=== PATIENT | female | born 1990 | race Caucasian/White ===

== ENCOUNTER 2019-09-10 14:08 | Inpatient (IN) | payer MEDICAID ==
[~2019-09-10] VITALS: Ht 170.2 cm; Wt 85.7 kg
[2019-09-10 14:08] VITALS: BP 103/64
[2019-09-10] MEDS ORDERED: IBUPROFEN 400 MG TAB PO ONE (14:50)
[2019-09-10 15:11] LABS: HEMATOCRIT 34.6 % (36-48); HEMOGLOBIN 11.1 g/dL (12.0-16.0); MEAN CORPUSCULAR HEMOGLOBIN 28 pg (27-31); MEAN CORPUSCULAR HGB CONC 32 g/dL (33-37); MEAN CORPUSCULAR VOLUME 85.4 fL (80-94); PLATELET COUNT (AUTO) 367 K/uL (140-450); RED BLOOD CELL COUNT(AUTO) 4.06 MIL/uL (4.20-5.40); RED CELL DISTRIBUTION WIDTH 14.9 % (11.6-13.7); WHITE BLOOD COUNT (AUTO) 20.1 K/uL (4.8-10.8)
[2019-09-10] MEDS ORDERED: IBUPROFEN 400 MG TAB ONE (16:02)
[2019-09-10 16:24] LABS: BASOPHILS % (MANUAL) 0 % (0-2); EOSINOPHILS % (MANUAL) 1 % (0-4); LYMPHOCYTES % (MANUAL) 4 % (20-46); MONOCYTES % (MANUAL) 4 % (5-12)
[2019-09-10] MEDS ORDERED: GENTAMICIN PER PHARMACY MC PRN (16:55)
[2019-09-10 17:40] LABS: ANION GAP 15.6 (8-16); CARBON DIOXIDE 24.5 mmol/L (21-32); CREATININE 0.8 mg/dL (0.6-1.3); POTASSIUM 4.1 mmol/L (3.5-5.1)
[2019-09-10] MEDS: GENTAMICIN 120 MG in DEXTROSE 5% 100 ML IV SCH (18:00)
[2019-09-10] MEDS ORDERED: PROPOFOL 200 MG/20 ML VIAL IV ONE (18:16)
[2019-09-10] MEDS ORDERED: DEXAMETHASONE 4 MG/ML VIAL ONE (18:16)
[2019-09-10] MEDS ORDERED: DESFLURANE 240 ML BTL INH ONE (18:16)
[2019-09-10] MEDS ORDERED: SUCCINYLCHOLINE CHLORIDE 200 MG/10 ML VIAL IVP ONE (18:16)
[2019-09-10] MEDS ORDERED: ROCURONIUM 50 MG/5 ML VIAL IV ONE (18:16)
[2019-09-10] MEDS ORDERED: MEPERIDINE 25 MG/ML SYR IVP PRN (18:20)
[2019-09-10] MEDS ORDERED: ONDANSETRON 4 MG/2 ML VIAL IVP PRN (18:20)
[2019-09-10] MEDS ORDERED: MISOPROSTOL 100 MCG TAB ONE (18:38)
[2019-09-10] MEDS: HYDROmorphone 1 MG/ML AMP IVP PRN ×4 (19:00→19:30)
[2019-09-10] MEDS ORDERED: HYDROmorphone PFS 2 MG/ML SYR ONE (19:06)
[2019-09-10 20:00] VITALS: BP 101/65
[2019-09-10] MEDS: CLINDAMYCIN 900 MG in DEXTROSE 5% 100 ML IV SCH (21:12)
[2019-09-10] MEDS ORDERED: oxyCODONE/APAP 5/325 MG 1 TAB TAB PO PRN (22:30)
[2019-09-11] VITALS: BP 107/60
[2019-09-11] MEDS: GENTAMICIN 120 MG in DEXTROSE 5% 100 ML IV SCH ×3 (01:20→21:56)
[2019-09-11] MEDS: oxyCODONE/APAP 5/325 MG 1 TAB TAB PO PRN ×4 (01:24→20:36)
[2019-09-11 04:00] VITALS: BP 121/46
[2019-09-11] MEDS: CLINDAMYCIN 900 MG in DEXTROSE 5% 100 ML IV SCH ×3 (05:08→20:37)
[2019-09-11 08:00] VITALS: BP 95/57
[2019-09-11 09:55] LABS: BASOPHILS % (AUTO) 0.3 % (0.0-2.0); EOSINOPHILS % (AUTO) 0.3 % (0.0-4.0); HEMATOCRIT 33.2 % (36-48); HEMOGLOBIN 10.9 g/dL (12.0-16.0); LYMPHOCYTES # (AUTO) 1.6 K/uL (2.5-16.5); LYMPHOCYTES % (AUTO) 16.3 % (20.5-51.1); MEAN CORPUSCULAR HEMOGLOBIN 28 pg (27-31); MEAN CORPUSCULAR HGB CONC 33 g/dL (33-37); MEAN CORPUSCULAR VOLUME 85.5 fL (80-94); MONOCYTES # (AUTO) 0.5 K/uL (0.8-1.0); MONOCYTES % (AUTO) 5.3 % (1.7-9.3); NEUTROPHILS # (AUTO) 7.6 K/uL (1.8-7.7); NEUTROPHILS % (AUTO) 77.8 % (42.2-75.2); PLATELET COUNT (AUTO) 340 K/uL (140-450); RED BLOOD CELL COUNT(AUTO) 3.89 MIL/uL (4.20-5.40); RED CELL DISTRIBUTION WIDTH 14.5 % (11.6-13.7); WHITE BLOOD COUNT (AUTO) 9.8 K/uL (4.8-10.8)
[2019-09-11 10:04] LABS: ANION GAP 13.5 (8-16); CARBON DIOXIDE 28.5 mmol/L (21-32); CREATININE 0.9 mg/dL (0.6-1.3)
[2019-09-11 16:00] VITALS: BP 93/54
[2019-09-12] VITALS: BP 90/57
[2019-09-12] MEDS: CLINDAMYCIN 900 MG in DEXTROSE 5% 100 ML IV SCH ×2 (05:37→13:30)
[2019-09-12] MEDS: oxyCODONE/APAP 5/325 MG 1 TAB TAB PO PRN (07:49)
[2019-09-12] MEDS: GENTAMICIN 120 MG in DEXTROSE 5% 100 ML IV SCH (08:46)
[2019-09-12 14:49] VITALS: BP 102/58
== END 2019-09-12 16:43 | disposition home or self-care (01) | DRG 544 ==
LOC: MED 14:08 → MTU 17:01
PROVIDERS: ADMIT Obstetrics & Gynecology; ATTEND Obstetrics & Gynecology
PROC: 10D17ZZ Extraction of Products of Conception, Retained, Via Natural or Artificial Opening (ICD-10-PCS; principal; 2019-09-10 18:00)
DX: O72.2 Delayed and secondary postpartum hemorrhage (principal); D62 Acute posthemorrhagic anemia; O86.12 Endometritis following delivery; O99.13 Other diseases of the blood and blood-forming organs and certain disorders involving the immune mechanism complicating the puerperium; O99.53 Diseases of the respiratory system complicating the puerperium; J45.909 Unspecified asthma, uncomplicated
CPT/HCPCS: 36415; 76856; 80048; 80170; 84702; 85025; 86886; 86900; 86901; 87081; 88305; 99285; J0330; J1100; J1170; J1580; J2704; J3490; J7030; J7060; Q0092